=== PATIENT | male | born 1990 | race Caucasian/White ===

== ENCOUNTER → 2020-12-20 | Outpatient (CLI) | payer BC ==
--- NOTE | 2020-12-20 17:03 | REP ---
INDICATION: PAIN COMPARISON: None. TECHNIQUE: AP and frog-lateral views of the right hip FINDINGS: Examination demonstrates minimal age-related changes. No overt arthritic or degenerative changes are identified. No evidence for acute or healed injury. Surrounding soft tissues are unremarkable. IMPRESSION: Age-appropriate examination. No overt degenerative changes. <Electronically signed by Ryan Prieto > 12/20/20 1178
== END ==
LOC: M WUC 13:41
PROVIDERS: ATTEND Physician Assistant
DX: M25.551 Pain in right hip (principal)

== ENCOUNTER → 2021-01-17 | Outpatient (CLI) | payer BC ==
[2021-01-17 15:03] LABS: C REACTIVE PROTEIN QUANTITATIV < 0.30 MG/DL (0.00-0.30); RHEUMATOID FACTOR QUANT < 10.0 IU/ML (<15.0)
== END ==
LOC: M LAB 13:16
PROVIDERS: ATTEND Physician Assistant
DX: M16.11 Unilateral primary osteoarthritis, right hip (principal)